=== PATIENT | female | born 1985 | race Caucasian/White ===

== ENCOUNTER 2018-01-24 18:54 | Emergency (ER) | END 2018-01-24 23:01 | disposition home or self-care (01) ==

== ENCOUNTER 2018-02-27 19:23 | Emergency (ER) | payer OTHER ==
[~2018-02-27] VITALS: Ht 157.5 cm; Wt 76.7 kg
[~2018-02-27 19:23] MED LIST: ACET500C5 PO; LABE300T2 PO; NITR-58 PO; VIC PO; ZOF8 PO
[2018-02-27 19:25] VITALS: Ht 157.5 cm; Wt 76.7 kg
[2018-02-27] MEDS ORDERED: ONDANSETRON (ODT) 4 MG TAB ODT STA (20:57)
[2018-02-27] MEDS ORDERED: ONDA4TAB14 PO (22:01)
[2018-02-27 22:09] VITALS: BP 159/105; PULSE 92; RESP 16
--- NOTE | 2018-02-27 23:26 | ERD ---
ER Documentation Chief Complaint Chief Complaint PREG 18 WKS WITH N/V X1WKS ; NO VAG BLEEDING [id number] HPI 32-year-old female presenting with vomiting. Patient had vomiting for 1 day. Patient denies any vaginal bleeding. She is 18 weeks with no complication. She is being seen by Dr. Mai. A0. Denies any pelvic cramping or pain. No vaginal bleeding. No fevers. Has not taken medications for symptoms. Medical history is hypertension. NKDA. Surgical history C- section cholecystectomy. Social history denies ROS All systems reviewed and are negative except as per history of present illness. Medications Home Meds Active Scripts Ondansetron (Ondansetron Odt) 4 Mg Tab.rapdis, 4 MG PO Q6H PRN for NAUSEA AND/OR VOMITING, #10 TAB Prov:INES DEL RIO PA-C 02/27/18 Labetalol Hcl* (Labetalol Hcl*) 300 Mg Tablet, 300 MG PO BID for 14 Days, #28 TAB Prov:FARZAD DUNBAR MD 01/24/18 Nitrofurantoin Monohyd Macrocr (Macrobid) 100 Mg Capsr, 100 MG PO BID, #10 CAP Prov:JANEY GOMEZ NP 03/18/15 Ondansetron Hcl* (Zofran* ODT) 8 mg -ODT Tab.disper, 8 MG PO Q6H PRN for NAUSEA AND OR VOMITING, #10 TAB Prov:JANEY GOMEZ NP 03/18/15 Acetaminophen* (Tylophen*) 500 Mg Capsule, 500 MG PO Q6H PRN for PAIN AND OR ELEVATED TEMP, #30 TAB Prov:JANEY GOMEZ NP 03/18/15 Reported Medications Acetaminophen/Hydrocodone (Vicodin) 1 Tab Tab, 1 TAB PO TID 03/24/11 Allergies Allergies: Coded Allergies: No Known Drug Allergy (Verified Allergy, Unknown, 02/27/18) PMhx/Soc History of Surgery: Yes () Anesthesia Reaction: No Hx Neurological Disorder: No Hx Respiratory Disorders: No Hx Cardiac Disorders: Yes (eclamspia during ) Hx Psychiatric Problems: No Hx Miscellaneous Medical Probl: No Hx Alcohol Use: No Hx Substance Use: No Hx Tobacco Use: No Smoking Status: Never smoker FmHx Family History: No diabetes, No coronary disease, No other Physical Exam Vitals Vital Signs Date Temp Pulse Resp B/P (MAP) Pulse Ox O2 O2 Flow FiO2 Time Delivery Rate 02/27/18 98.1 92 16 159/105 100 Room Air 22:09 (123) 02/27/18 98.1 105 19 164/97 97 19:25 (119) Physical Exam GENERAL: The patient is well-appearing, well-nourished, in no acute distress HEENT: Atraumatic. Conjunctivae are pink. Pupils equal, round, and reactive to light. There is no scleral icterus. Tympanic membranes clear bilaterally. Oropharynx clear. NECK: C-spine is soft and supple. There is no meningismus. There is no cervical lymphadenopathy. CHEST: Clear to auscultation bilaterally. There are no rales, wheezes or rhonchi. HEART: Regular rate and rhythm. No murmurs, clicks, rubs or gallops. No S3 or S4. ABDOMEN:Soft, nontender and nondistended. Good bowel sounds. No rebound or guarding. No gross peritonitis. No gross organomegaly or masses. No Nagy sign or McBurney point tenderness. Results 24 hrs Current Medications Medications Dose Sig/Peterson Start Time Status Last (Trade) Ordered Route PRN Stop Time Admin Dose Reason Admin Ondansetron 4 mg ONCE STAT 02/27/18 DC 02/27/18 HCl (Zofran ODT 20:57 02/27/18 21:06 Odt) 20:58 Procedures/MDM ER course: Zofran p.o. challenge given ED. Patient passed p.o. challenge. MDM: 32-year-old female presenting with vomiting. I have low suspicion for acute abdominal emergency or complications secondary to . Patient likely has viral gastroenteritis and is discharged with supportive medications. I did not feel that further blood work or imaging is indicated. Patient is discharged stricter precautions and told to follow-up with primary care within 1-2 days for close evaluation. Patient is told symptoms change or worsen to immediately return to the ER. All questions answered at discharge Departure Diagnosis: Primary Impression: Nausea and vomiting Condition: Stable Patient Instructions: Nausea and Vomiting-Adult Referrals: FARZAD BALLARD MD (PCP) Additional Instructions: FOLLOW UP WITH YOUR PRIMARY CARE PHYSICIAN TOMORROW.Return to this facility if you are not improving as expected. INES DEL RIO PA-C Feb 27, 2018 23:26
== END 2018-02-27 22:10 | disposition home or self-care (01) ==
LOC: FTE 19:23
DX: O21.9 Vomiting of pregnancy, unspecified (principal); Z3A.18 18 weeks gestation of pregnancy
CPT/HCPCS: Z7502; Z7610; 99283

== ENCOUNTER 2018-05-12 20:26 | Inpatient (IN) | payer OTHER ==
[~2018-05-12 20:26] MED LIST changes: +ONDA4TAB14 PO
[2018-05-12] MEDS ORDERED: AL HYDROX/MG HYDROX/SIMETH 30 ML CUP PO PRN (22:00)
[2018-05-12] MEDS ORDERED: ACETAMINOPHEN 325 MG TAB PO PRN (22:00)
[2018-05-12] MEDS ORDERED: GLUCOSE GEL 15 GRAM TUBE PO PRN ×2 (22:30)
[2018-05-12] MEDS ORDERED: DEXTROSE 50% 50 ML SYRINGE IV PRN ×2 (22:30)
[2018-05-12] MEDS ORDERED: GLUCAGON 1 MG INJ IM PRN (22:30)
[2018-05-12] MEDS ORDERED: GLUCOSE GEL 15 GRAM TUBE BUCCAL PRN (22:30)
[2018-05-12] MEDS: LABETALOL 200 MG TAB PO SCH (23:41)
[2018-05-12] MEDS: BETAMET NA PHOS/AC(6 MG/ML) 2 ML INJ SYG IM SCH (23:41)
--- NOTE | 2018-05-13 05:13 | TRIAGE ---
OB Triage Datetime Report Generated by CPN: 05/13/2018 05:13 Datetime: 05/13/2018 02:50 Stage of : Antepartum Datetime: 05/13/2018 02:32 Stage of : Antepartum Maternal Assessment Level of Consciousness: Fully Conscious Labor Evaluation Frequency: None Monitor Mode: External Resting Tone Corinne: Relaxed Heart Rate FHR Baseline Rate: 135 Monitor Mode: External US FHR Baseline Changes: No Baseline Change Variability: Moderate 6-25 bpm Accelerations: 15X15 Decelerations: None Pain Assessment Pain Scale: 0 Pain Presence: None/Denies Pain Type: N/A Pain Assessment Comments: Sleeping did not awaken when entering room. Datetime: 05/13/2018 02:03 Stage of : Antepartum Datetime: 05/13/2018 01:20 Stage of : Antepartum Maternal Assessment Level of Consciousness: Fully Conscious Headache: Denies Nausea/Vomiting: Denies RUQ Epigastric Pain: Denies Labor Evaluation Frequency: None Monitor Mode: External Resting Tone Corinne: Relaxed Heart Rate FHR Baseline Rate: 135 Monitor Mode: External US FHR Baseline Changes: No Baseline Change Variability: Moderate 6-25 bpm Accelerations: 15X15 Decelerations: None Pain Assessment Pain Scale: 0 Pain Presence: None/Denies Pain Type: N/A Datetime: 05/13/2018 00:21 Stage of : Antepartum Maternal Assessment Level of Consciousness: Fully Conscious Headache: Denies Nausea/Vomiting: Denies RUQ Epigastric Pain: Denies Labor Evaluation Frequency: None Monitor Mode: External Resting Tone Corinne: Relaxed Heart Rate FHR Baseline Rate: 135 Monitor Mode: External US FHR Baseline Changes: No Baseline Change Variability: Moderate 6-25 bpm Accelerations: 15X15 Decelerations: None Pain Assessment Pain Scale: 0 Pain Presence: None/Denies Pain Type: N/A Datetime: 05/12/2018 23:41 Stage of : Antepartum Datetime: 05/12/2018 23:40 Stage of : Antepartum Datetime: 05/12/2018 23:30 Stage of : OB Triage Maternal Assessment Level of Consciousness: Fully Conscious DTR's/Clonus: DTRs 2+; No Clonus Headache: Denies Breath Sounds, Left: Clear and Equal Breath Sounds, Right: Clear and Equal Nausea/Vomiting: Denies RUQ Epigastric Pain: Denies Temperature Route: Oral Labor Evaluation Frequency: None Monitor Mode: External Resting Tone Corinne: Relaxed Heart Rate FHR Baseline Rate: 135 Monitor Mode: External US FHR Baseline Changes: No Baseline Change Variability: Moderate 6-25 bpm Accelerations: 15X15 Decelerations: None Category: Category I Pain Assessment Pain Scale: 0 Pain Presence: None/Denies Pain Type: N/A Datetime: 05/12/2018 22:53 Assessment Type: Admission Assessment Datetime: 05/12/2018 22:49 Time of Arrival: 05/12/2018 20:12 EGA: 28.5 Arrived By: Ambulatory Arrived From: Home Chief Complaint: w/ hx c/s x 1 @30 wks for PIH sent from clinic w/ orders to evaluate for HBP Movement: Present Contractions: Denies/Absent Rupture of Membranes: Denies Vaginal Bleeding: None Vaginal Discharge: Denies Recent Sexual Intercouse: Denies Abdominal Trauma: Not Applicable Patient Complaints: None Additional Patient Complaints: Pt on labetolol 200mg BID A1DM Time Provider Notified: 05/12/2018 21:30 Provider Notified: Dr Santillan Initial Plan: EFM,PIH LABS, BPP Datetime: 05/12/2018 21:34 Vaginal Exam Membrane Status: Intact Datetime: 05/12/2018 21:30 Stage of : OB Triage Quality: Mild Pattern: Normal: <= 5 Contractions in 10 Minutes Resting Tone Corinne: Relaxed Datetime: 05/12/2018 20:47 Stage of : OB Triage Maternal Assessment Level of Consciousness: Fully Conscious DTR's/Clonus: DTRs 2+; No Clonus Headache: Denies Blurred Vision: No Respiratory Effort: Unlabored Nausea/Vomiting: Denies RUQ Epigastric Pain: Denies Facial Edema: None Monitor Mode: External Resting Tone Corinne: Relaxed Monitor Mode: External US Comments: FHT 135 Pain Assessment Pain Scale: 0 Pain Presence: None/Denies Pain Type: N/A
--- NOTE | 2018-05-13 05:27 | PREOPHP ---
DATE OF ADMISSION: 05/12/2018 HISTORY OF PRESENT ILLNESS: This is a 32-year-old lady, 2, para 1. Her EDC is 07/30/2018, a t 28 and 6/7 weeks , admitted to Labor and Delivery area for observation. The patient is kno wn to have chronic hypertension and she is on labetalol 200 mg b.i.d. given by the perinatologist at [facility]. When she was in the clinic, on 05/12/2018, her blood pressure was 160/105 and repeat at 170/110, so she was admitted for observation. PAST PERSONAL HISTORY: No history of TB or asthma. ALLERGIES: NO ALLERGIES. MEDICATIONS: The patient is on labetalol 200 mg b.i.d. She has gestational diabetes. She is having care in my [facility] office. SOCIAL HISTORY: The patient does not smoke. She does not drink. She takes her iron and vitamins an d labetalol. She has menarche at the age of 14, every 28 days interval, 3 to 4 days duration, and mo derate in amount. FAMILY HISTORY: Mother has diabetes and hypertension, and sister has heart disease. PAST SURGICAL HISTORY: She had gallbladder surgery. She is 2, para 1. Her first delivery w as in 2009, delivered at 31 weeks by and a twin . She was delivered at 31 weeks f or preeclampsia. REVIEW OF SYSTEMS: CARDIOVASCULAR: No chest pains. RESPIRATORY: No cough. GASTROINTESTINAL: No diarrhea, no vomiting. GENITOURINARY: No dysuria. PHYSICAL EXAMINATION: GENERAL: Reveals a conscious, coherent lady and in no acute distress. VITAL SIGNS: Her blood pressure on admission one was 165/90, but after it was repeated, it was 133/8 8; pulse rate 80 per minute, respirations 16 per minute. BREASTS, HEART AND LUNGS: Within normal limits. ABDOMEN: Soft. Fundic height 29 cm. heart tones 140 per minute. PELVIC: On admission, revealed the cervix to be closed. EXTREMITIES: No calf tenderness. Deep tendon reflexes are normal. ADMITTING DIAGNOSIS: At 28 and 6/7 weeks intrauterine with chronic hypertension and gestat ional diabetes, diet controlled. The patient was planned to be observed in the hospital to have preg victor hugo-induced hypertension workup and increase her labetalol to 200 three times a day. The plans wer e explained to the patient and she understood everything totally. The risks, benefits, and alternati ves were discussed with her as well. Dictated By: SCOTTY GUO/CHELA Conf#: [id number] DID#: [id number]
[2018-05-13] MEDS: METOCLOPRAMIDE 10 MG TAB PO SCH ×5 (06:00→18:11)
[2018-05-13] MEDS: ACCU-CHEK XX SCH ×4 (08:00→18:09)
[2018-05-13] MEDS: FERROUS SULFATE (EC) 325 MG TAB PO SCH (08:53)
[2018-05-13] MEDS: PRENATAL VITAMIN PO SCH (08:54)
[2018-05-13] MEDS: LABETALOL 200 MG TAB PO SCH ×2 (08:54→16:57)
[2018-05-13] MEDS: INSULIN ASPART [NOVOLOG] 3 ML PEN SC SCH (18:09)
[2018-05-13] MEDS ORDERED: ACCU-CHEK XX SCH (19:35)
[2018-05-13] MEDS: BETAMET NA PHOS/AC(6 MG/ML) 2 ML INJ SYG IM SCH (23:41)
[2018-05-14] MEDS: LABETALOL 200 MG TAB PO SCH ×3 (01:00→12:33)
--- NOTE | 2018-05-14 06:28 | CONS ---
DATE OF ADMISSION: 05/12/2018 DATE OF CONSULTATION: 05/13/2018 TYPE OF CONSULTATION: Perinatology consult. HISTORY OF PRESENT ILLNESS: The patient is a 32-year-old G2, P1 at less than 30 weeks who w as admitted from the office with elevated blood pressure. Her blood pressures initially a few of the m were severe. However, after dose was increased, her blood pressures currently are in the moderate ranges. She has no headache, chest pain, shortness of breath. PAST MEDICAL HISTORY: Significant for chronic hypertension diagnosed prior to , she was on some type of medication which she does not remember. During the she has been on labetalol 200 mg twice a day until now. OBSTETRIC HISTORY: Significant for history of preeclampsia, but she states that hypertension resolve d after until chronic hypertension developed. She delivered the first baby at 30 weeks. Blood pressure is currently 142/81. Physical examination deferred. heart tones reassuring. N o contractions. LABORATORY VALUES: AST, ALT, creatinine and platelets are normal. A 24-hour urine for protein is pe nding. IMPRESSION: Intrauterine at currently less than 30 weeks gestation, admitted secondary to elevated blood pressures; few severe blood pressures at admission, blood pressure medication dose was increased to labetalol 200 mg 3 times a day. Her blood pressure is currently in normal to moderate range, receiving betamethasone and 24-hour urine protein will be up this evening. She has a history of chronic hypertension. RECOMMENDATIONS: Continue currently with the current management of care. We can consider discharge after the betamethasone is done if her blood pressures remain in the modera te range. heart tones reassuring and there are no symptoms, meaning GI, neurologic or respirat ory symptoms of preeclampsia. Upon discharge, she needs to be seen at perinatology for a BPP once a week until 32 weeks which she w ill have the twice weekly testing, once a week laboratory results and the more frequent at her primary clinic. She was extremely cautioned about bed rest at home and preeclampsia precautions were advised, as she has had this preeclampsia before with the last she delivered at 30 weeks and she is approac sara 30 weeks. For her gestational diabetes I put her on sliding scale as she is receiving betamethasone. If she is discharged, obviously betamethasone should be discharged until we see her hopefully next week. Dictated By: GEORGE DUEÑAS/NTS Conf#: [id number] DID#: [id number] CC: SCOTTY GUTIERREZ MD;*[facility]*
[2018-05-14] MEDS: INSULIN ASPART [NOVOLOG] 3 ML PEN SC SCH (08:44)
[2018-05-14] MEDS: PRENATAL VITAMIN PO SCH (09:22)
[2018-05-14] MEDS: FERROUS SULFATE (EC) 325 MG TAB PO SCH (09:22)
[2018-05-14] MEDS: METOCLOPRAMIDE 10 MG TAB PO SCH (14:01)
[2018-05-14] MEDS ORDERED: LABE200T7 PO (16:13)
--- NOTE | 2018-05-16 04:23 | PN ---
DATE: 05/13/2018 SUBJECTIVE: The patient feels good. No complaints, no headache, no abdominal pain. No blurring of vision. OBJECTIVE: VITAL SIGNS: She is afebrile, blood pressure is under control. ABDOMEN: Soft, no tenderness noted. heart tones normal. EXTREMITIES: No calf tenderness. ASSESSMENT: A 29 weeks intrauterine with -induced hypertension. PLAN: Continue with labetalol p.o. 3 times a day and to give the second dose of betamethasone today. Plan to go tomorrow per Dr. Skinner. Dictated By: SCOTTY GUO/NTS Conf#: [id number] DID#: [id number]
--- NOTE | 2018-05-16 04:30 | PN ---
DATE: 05/14/2018 SUBJECTIVE: The patient feels good. No headache, no blurring of vision. OBJECTIVE: VITAL SIGNS: She is afebrile, blood pressure under control less than 140/90. ABDOMEN: Soft. heart tones normal. No tenderness noted. No vaginal bleeding. EXTREMITIES: No calf tenderness. Deep tendon reflexes normal. PLAN: Home today. Continue with labetalol 200 mg p.o. 3 times a day. Received 2 doses of betametha sone. Patient counseled. She was instructed to return to clinic in 1 week. Dictated By: SCOTTY GUO/NTS Conf#: [id number] DID#: [id number]
--- NOTE | 2018-05-20 20:57 | DS ---
DATE OF ADMISSION: 05/12/2018 DATE OF DISCHARGE: 05/14/2018 This is a 32-year-old lady 2, para 1, EDC 07/30/2018 at 28 and 6/7 weeks , admitted f or observation for her chronic hypertension. She had care in my [place] office and the [facility] care was complicated by hypertension. She has been followed by the perinatologist at [facility]. PAST PERSONAL HISTORY: No history of diabetes, TB, asthma. ALLERGIES: NONE. HISTORY OF PRESENT ILLNESS: See dictated history and physical. PHYSICAL EXAMINATION: See dictated history and physical. ADMITTING DIAGNOSIS: A 28 and 6/7 weeks intrauterine with chronic hypertension, gestationa l diabetes, diet controlled. HOSPITAL COURSE: Dr. Skinner wanted the patient to be observed in the hospital and to increase her lab etalol to 200 three times a day. She was observed for 2 days and the blood pressure was under contro l less than 140/90. She did not have any complaint. No epigastric pain. No blurring of vision. Jose gustafson was discharged home on the second day of observation on 05/14/2018 on general diet and activity was restricted. She was counseled. She was instructed. She was told to continue labetalol 200 mg 3 ti mes a day. FINAL DIAGNOSES: A 29 and 1/7 weeks intrauterine with chronic hypertension, gestational di abetes mellitus diet-controlled. Dictated By: SCOTTY GUO/NTS Conf#: [id number] DID#: [id number]
== END 2018-05-14 16:30 | disposition home or self-care (01) | DRG 833 ==
LOC: OBT 20:26 → L-D 20:27 → OBT 21:40 → L-D 22:28 → PP1 05-14 06:57
PROVIDERS: ADMIT Obstetrics & Gynecology; ATTEND Obstetrics & Gynecology
DX: O10.013 Pre-existing essential hypertension complicating pregnancy, third trimester (principal); Z3A.28 28 weeks gestation of pregnancy; O24.410 Gestational diabetes mellitus in pregnancy, diet controlled
CPT/HCPCS: 76815; 76818; 80053; 81001; 82575; 82962; 84156; 84560; 85025; 85384; 85610; 85730; 86592; 86850; 86900; 86901; 87086; G0463; J0702; J1815

== ENCOUNTER 2018-06-24 11:43 | Inpatient (IN) | payer OTHER ==
[~2018-06-24] VITALS: Ht 154.9 cm; Wt 83.0 kg
[~2018-06-24 11:43] MED LIST changes: +LABE200T7 PO; -LABE300T2 PO; -NITR-58 PO; -VIC PO
[2018-07-05 17:07] VITALS: Ht 154.9 cm; Wt 83.0 kg
[2018-07-05 17:08] VITALS: BP 156/87
[2018-07-05] MEDS ORDERED: PREN1TAB71 PO (17:11)
[2018-07-05] MEDS ORDERED: FERR134T PO (17:11)
[2018-07-05] MEDS ORDERED: CALC600T5 PO (17:13)
[2018-07-05] MEDS: LACTATED RINGER'S 1,000 ML IV SCH (18:48)
[2018-07-05] MEDS ORDERED: hydrALAzine 20 MG INJ IV ONE (19:00)
[2018-07-05] MEDS: ACETAMINOPHEN 500 MG TAB PO PRN ×2 (19:41→23:57)
[2018-07-05] MEDS: LABETALOL 200 MG TAB PO SCH (21:21)
[2018-07-05] MEDS: ACCU-CHEK XX SCH (21:50)
[2018-07-06] VITALS (10 sets, daily range): BP systolic 117–151; BP diastolic 64–89; PULSE 78–104; RESP 18–20
[2018-07-06] MEDS: LACTATED RINGER'S 1,000 ML IV SCH (02:13)
[2018-07-06] MEDS ORDERED: hydrALAzine 20 MG INJ ONE (07:06)
[2018-07-06] MEDS ORDERED: hydrALAzine 20 MG INJ IV ONE (07:30)
[2018-07-06] MEDS ORDERED: LABETALOL HCL 20MG INJ IV ONE (07:30)
--- NOTE | 2018-07-06 07:36 | PREAC ---
Date/Time of Note Date/Time of Note DATE: 07/06/18 TIME: 07:34 Anesthesia Eval and Record Evaluation Time Pre-Procedure Interview DATE: 07/06/18 TIME: 07:34 Age 32 Sex female NPO: 8 hrs Preoperative diagnosis PREVIOUS C SECTION, CHRONIC HTN Planned procedure REPEAT C SECTION Past Medical History Past Medical History: Includes : : (2), Para: (1), Gestational age: (36 1/7 WEEKS) Surgery & Anesthesia Issues No known issue Meds Anticoagulation: No Beta Elise within 24 hr: No Reason Beta Elise not given: Pt. not on B-Elise Reported Medications Calcium Carbonate (CALCIUM) 600 Mg Tablet, 600 MG PO, TAB 07/05/18 Ferrous Sulfate (Iron) 134 Mg Tablet, 134 MG PO, TAB 07/05/18 Vit No.130/Iron/FA ( Tablet) 1 Each Tablet, 1 EACH PO 07/05/18 Labetalol Hcl (Normodyne) 200 Mg Tablet, 200 MG PO BID, TAB 05/14/18 Discontinued Scripts Ondansetron (Ondansetron Odt) 4 Mg Tab.rapdis, 4 MG PO Q6H PRN for NAUSEA AND/OR VOMITING, #10 TAB Prov:INES DEL RIO PA-C 02/27/18 Ondansetron Hcl* (Zofran* ODT) 8 mg -ODT Tab.disper, 8 MG PO Q6H PRN for NAUSEA AND OR VOMITING, #10 TAB Prov:JANEY GOMEZ NP 03/18/15 Acetaminophen* (Tylophen*) 500 Mg Capsule, 500 MG PO Q6H PRN for PAIN AND OR ELEVATED TEMP, #30 TAB Prov:JANEY GOMEZ NP 03/18/15 Current Medications Diagnostic Test (Pha) (Accu-Chek) 1 ea FBSPP XX ; Start 07/05/18 at 19:35 Labetalol HCl (Normodyne) 200 mg TID PO Last administered on 07/05/18at 21:21; Admin Dose 200 MG; Start 07/05/18 at 21:00 Acetaminophen (Tylenol Tab) 1,000 mg Q6H PRN PO MILD PAIN(1-3)OR ELEVATED TEMP Last administered on 07/05/18at 23:57; Admin Dose 1,000 MG; Start 07/05/18 at 18:00 Lactated Ringer's 1,000 ml @ 125 mls/hr Q8H IV Last administered on 07/06/18at 02:13; Admin Dose 125 MLS/HR; Start 07/05/18 at 19:00 Meds reviewed: Yes Allergies Coded Allergies: No Known Allergy (Unverified , 07/05/18) Allergies Reviewed: Yes Labs/Studies Labs Reviewed: Reviewed by anesthesiologist Result Diagram: 07/05/18 1732 07/05/18 1732 Laboratory Tests 07/05/18 17:32 test: N/A Pre-procedure Exam Last vitals Vital Signs Date Temp Pulse Resp B/P (MAP) Pulse Ox O2 O2 Flow FiO2 Time Delivery Rate 07/06/18 98.0 00:45 07/05/18 156/87 Room Air 17:08 (110) Airway: Adequate mouth opening, Adequate thyromental dist Mallampati: Mallampati II Teeth: Normal Lung: Normal Heart: Normal ASA Physical Status ASA physical status: 3 Emergency: None Planned Anesthetic Neuraxial: Spinal Planned Pain Management Parenteral pain med Pre-operative Attestations Prior to commencing anesthesia and surgery, the patient was re-evaluated, there was verification of: *The patient's identity *The results of appropriate recent lab work and preoperative vital signs *The above evaluation not changing prior to induction *Anesthetic plan, risk benefits, alternative and complications discussed with patient/family; questions answered; patient/family understands, accepts and wishes to proceed. Claudy Wallace M.D. July 06, 2018 07:36
[2018-07-06] MEDS ORDERED: ONDANSETRON 4 MG INJ IV STA (07:40)
[2018-07-06] MEDS ORDERED: CARBOPROST 250 MCG INJ IM PRN ×2 (08:00→11:30)
[2018-07-06] MEDS ORDERED: CEFAZOLIN 2 GM/50 ML (PMX) 50 ML IVPB SCH (08:00)
[2018-07-06] MEDS ORDERED: MISOPROSTOL 200 MCG TAB PR PRN ×2 (08:00→11:30)
[2018-07-06] MEDS ORDERED: CITRIC ACID/NA CITRATE 30 ML CUP PO ONE (08:00)
[2018-07-06] MEDS ORDERED: OXYTOCIN 30 UNITS/LR 500 ML IV PRN ×2 (08:00→11:30)
[2018-07-06] MEDS: LABETALOL 200 MG TAB PO SCH ×3 (09:00→21:00)
--- NOTE | 2018-07-06 09:18 | PREOPHP ---
DATE OF ADMISSION: 07/05/2018 HISTORY OF PRESENT ILLNESS: This is a 32-year-old lady, 2, para 1. Her EDC is a July 30 9 that makes her 36 and 3/7 weeks . On admission, admitted to labor and delivery area for ob servation. She has chronic hypertension and she is on labetalol 200 mg 3 times a day and the patient came from Dr. Skinner's office and was sent to labor and delivery for extended observation as her bloo d pressure was elevated at Dr. Skinner's office in spite of her labetalol 3 times a day. PAST PERSONAL HISTORY: No history of TB, asthma. ALLERGIES: NO ALLERGIES. SOCIAL HISTORY: The patient does not smoke. She does not drink. MEDICATIONS: She takes iron, vitamins and her labetalol. OBSTETRICAL HISTORY: She is 2, para 1. Her first delivery was in 2009 by for pree clampsia. GYNECOLOGIC HISTORY: She had menarche at the age of 14, every 28 days interval, 3 to 4 days duration , and moderate in amount. FAMILY HISTORY: Mother has diabetes and hypertension. Her sister has heart disease. REVIEW OF SYSTEMS: CARDIOVASCULAR: No chest pains. RESPIRATORY: No cough. GASTROINTESTINAL: No diarrhea, no vomiting. GENITOURINARY: No dysuria. PHYSICAL EXAMINATION: GENERAL: Reveals a conscious, coherent lady and in no acute distress. VITAL SIGNS: Blood pressure on admission was 148/90, pulse rate 80 per minute, respirations 16 per m inute. BREASTS, HEART AND LUNGS: Within normal limits. ABDOMEN: Soft, fundic height 36 cm. heart tones 140 per minute. PELVIC: Revealed the cervix to be closed. EXTREMITIES: No pedal edema. ADMITTING DIAGNOSIS: 36 and 3/7 weeks intrauterine with chronic hypertension, rule out pre gnancy induced hypertension. The patient was worked up for induced hypertension and was co ntinued on labetalol. During the evening her blood pressure ramesh up to 180/110 and she was given Apr esoline and the blood pressure was closed to 140/90. In the morning around 7, I was called by the coco rse that her blood pressure was 190/110 again, so she was given another dose of Apresoline and the pa tient was put n.p.o. and she was scheduled to have repeat for chronic hypertension and poss ible severe preeclampsia. Dr. Skinner was consulted and she advised the patient to be delivered as vikram n as possible. The plans were explained to the patient and she understood everything totally. The r isks, benefits, and alternatives were discussed with them as well. So the indication is 36 and 4/7 w eeks intrauterine with severe chronic hypertension and possible severe induced hy pertension and one previous section. Dictated By: SCOTTY GUTIERREZ MD NS/NTS Conf#: [id number] DID#: [id number] CC: SCOTTY GUTIERREZ MD;*EndCC*
[2018-07-06] MEDS ORDERED: morphine SULFATE/PF (10 MG/10 ML) INJ ONE (09:35)
[2018-07-06] MEDS ORDERED: OXYTOCIN 10 UNIT INJ ONE (09:35)
[2018-07-06] MEDS ORDERED: METOCLOPRAMIDE 10 MG INJ ONE (09:35)
[2018-07-06] MEDS ORDERED: LABETALOL HCL 20MG INJ IV PRN (10:00)
[2018-07-06] MEDS ORDERED: NALBUPHINE HCL (10 MG/1 ML) INJ IV PRN (10:00)
[2018-07-06] MEDS ORDERED: HYDROmorphONE 1 MG/5 ML IV SYRINGE IV PRN ×3 (10:00)
[2018-07-06] MEDS ORDERED: ONDANSETRON 4 MG INJ IV PRN ×2 (10:00)
[2018-07-06] MEDS ORDERED: morphine 2 MG INJ IV PRN (10:00)
[2018-07-06] MEDS ORDERED: hydrALAzine 20 MG INJ IV PRN (10:00)
[2018-07-06] MEDS ORDERED: ZOLPIDEM 5 MG TAB PO PRN (10:00)
[2018-07-06] MEDS ORDERED: TRIMETHOBENZAMIDE 100 MG/ML VIAL IM PRN ×2 (10:00)
[2018-07-06] MEDS ORDERED: MEPERIDINE 25 MG INJ IV PRN (10:00)
[2018-07-06] MEDS ORDERED: DIPHENHYDRAMINE 50 MG INJ IV PRN ×2 (10:00)
[2018-07-06] MEDS ORDERED: IPRATROPIUM (NEB) 0.5 MG/2.5 ML AMP HHN PRN (10:00)
[2018-07-06] MEDS ORDERED: OXYCODONE/ACETAMINOPHEN (5/325) TAB PO PRN ×2 (10:00)
[2018-07-06] MEDS ORDERED: ALBUTEROL 0.083% (NEB) 2.5 MG/3 ML AMP HHN PRN (10:00)
[2018-07-06] MEDS ORDERED: EPHEDrine 25 MG/5 ML SYG IV PRN (10:00)
[2018-07-06] MEDS ORDERED: NALOXONE (0.4 MG/ML) INJ IV PRN (10:00)
[2018-07-06] MEDS ORDERED: FENTAnyl 50 MCG/ML VIAL IV PRN ×3 (10:00)
[2018-07-06] MEDS ORDERED: MIDAZOLAM 1 MG/ML 2 ML INJ IV PRN (10:00)
[2018-07-06] MEDS ORDERED: LABETALOL HCL 20MG INJ ONE (10:11)
[2018-07-06] MEDS ORDERED: DEXAMETHASONE 4 MG/ML 1 ML INJ ONE (10:16)
[2018-07-06] MEDS ORDERED: MIDAZOLAM 1 MG/ML 2 ML INJ ONE (10:17)
[2018-07-06] MEDS: OXYTOCIN 30 UNITS/LR 500 ML IV SCH (10:55)
[2018-07-06] MEDS ORDERED: LACTATED RINGER'S 1,000 ML IV SCH (11:06)
[2018-07-06] MEDS ORDERED: OXYTOCIN 30 UNITS/LR 500 ML IV SCH (11:06)
--- NOTE | 2018-07-06 11:20 | PAC ---
Date/Time of Note Date/Time of Note DATE: 07/06/18 TIME: 11:19 Post-Anesthesia Notes Post-Anesthesia Note Last documented vital signs Vital Signs Date Temp Pulse Resp B/P (MAP) Pulse Ox O2 O2 Flow FiO2 Time Delivery Rate 07/06/18 98.0 00:45 07/05/18 156/87 Room Air 17:08 (110) Activity: WNL Respiratory function: WNL Cardiovascular function: WNL Mental status: Baseline Pain reasonably controlled: Yes Hydration appropriate: Yes Nausea/Vomiting absent: Yes Claudy Wallace M.D. July 06, 2018 11:20
[2018-07-06] MEDS ORDERED: LANOLIN HPA 1 PKT TOP PRN (11:30)
[2018-07-06] MEDS ORDERED: MAGNESIUM SULFATE 4 GM/100 ML 100 ML IV SCH (11:30)
[2018-07-06] MEDS ORDERED: HYDROCODONE/APAP (5/325) TAB PO PRN (11:30)
[2018-07-06] MEDS ORDERED: METHYLERGONOVINE 0.2 MG TAB PO PRN (11:30)
[2018-07-06] MEDS ORDERED: METHYLERGONOVINE 0.2 MG INJ IM PRN (11:30)
[2018-07-06] MEDS ORDERED: NACL 0.9% 3 ML SYG IV SCH (11:30)
[2018-07-06] MEDS ORDERED: CA GLUCONATE (GM) 10% 10ML INJ IV PRN (11:30)
[2018-07-06] MEDS: MAGNESIUM SULFATE 20 GM/500 ML 500 ML IV SCH ×2 (11:41→22:16)
[2018-07-06] MEDS: KETOROLAC 30 MG INJ IV PRN ×2 (12:17→19:51)
[2018-07-06] MEDS: ACCU-CHEK XX SCH ×4 (13:30→20:05)
--- NOTE | 2018-07-06 14:09 | OPR ---
DATE OF OPERATION: 07/06/2018 PREOPERATIVE DIAGNOSES: 1. A 36 and 4/7 weeks' intrauterine . 2. One previous section. 3. Severe chronic hypertension. 4. Preeclampsia. POSTOPERATIVE DIAGNOSES: 1. A 36 and 4/7 weeks' intrauterine . 2. One previous section. 3. Severe chronic hypertension. 4. Preeclampsia. 5. Severe pelvic and abdominal adhesions. OPERATION PERFORMED: Repeat low transverse section plus lysis of severe pelvic and abdomina l adhesions. SURGEON: Scotty Santillan MD CELLAR SUPERVISOR: Kath Grimes MD ANESTHESIA: Spinal. ANESTHESIOLOGIST: Claudy Wallace MD OPERATIVE TECHNIQUE: Under spinal anesthesia, the patient was prepped and draped in the usual fashio n for abdominal surgery. After checking for the effect of the anesthesia, the previous Pfannenstiel scar was excised. Then a 12 cm skin incision was performed. The incision was carried from the skin up to the fascia. Upon opening the skin up to the fascia, small blood vessels were noted to be oozin g and these were all cauterized. Fascia was opened transversely followed by splitting the muscles ve rtically and the peritoneum vertically. Upon opening the abdominal cavity, the omentum was noted to be attached all over the anterior parietal peritoneum. All these adhesions were lysed by sharp and b loc dissection. Then, the bladder blade was put in place. A small van was performed from the sero sa up to the endometrium on the lower uterine segment and the van was carried sideways with the aid of my 2 fingers. My left hand was inserted in the lower segment of the uterus and the bag of water w as ruptured. Clear fluid was noted. Baby's head was delivered with good fundal pressure. The baby' s airways were quickly suctioned with amniotic fluid. The anterior shoulder, posterior shoulder and rest of the body of the baby were delivered. Baby was handed to the NICU team after 30 seconds. Cor d blood was obtained. The placenta was delivered manually and complete. The uterus was exteriorized . The uterus was cleansed with wet lap sponge to make sure that no membranes were left behind. After correct sponge count, the uterus was closed in the usual fashion using #1 chromic for the fir st layer, continuous locking suture was used followed by #1 chromic for the second layer, imbricating sutures were used. Bleeders were checked and there was no bleeding noted. After checking for any b leeders in which there were none, both tubes and ovaries were inspected. They were healthy looking. The broad ligament were checked for any hematoma and there was none noted. Then the uterus was put back to the pelvic cavity. Once again, uterine incision was checked for any bleeders and there was n o bleeding noted. After correct sponge count, needle count and instrument count as confirmed by the pattern technician and pre billing specialist, the abdomen was closed in the usual fashion using 0 Vicryl for the periton eum, 0 Vicryl for the muscles. For the fascia, 0 Vicryl continuous stitch was used followed by few f [id number] suture. For the subcutaneous tissue, it was closed with 3-0 Vicryl and the skin was c losed with 3-0 Vicryl, subcuticular suture was used. The patient tolerated the procedure well. Ngoc mated blood loss was about 600 mL. Vital signs were stable during and after the procedure. She deli nazia a healthy baby girl, 8 and 9, 3265 grams, 7 pounds and 3 ounces at 10:00 a.m., 19 inches long. Dictated By: SCOTTY GUO/CHELA Conf#: [id number] DID#: [id number]
--- NOTE | 2018-07-06 18:23 | OPPN ---
Date/Time of Note Date/Time of Note DATE: 07/06/18 TIME: 18:20 Operative Report Planned Procedure Procedure date July 06, 2018 Procedure(s) REPEAT CSECTION LYSIS OF ADHESION Performed by see signature line Final Inspector: ISAUT MCFARLAND MD 2nd Final Inspector none Pre-procedure diagnosis 36 4/7 PREVIOUS CSECTION SEVERE CHRONIC HTN [id number] Anesthesia Type: [id number] spinal Post-Procedure Post-procedure diagnosis 36 4/7 PREVIOUS CSECTION SEVERE CHRONIC HTN Findings Live Baby , [id number], [id number] 3 OZ 3265 GRAMS Estimated Blood Loss: 500 - 600 mls Specimen(s) none Grafts/Implant(s) PLACENTA Complication(s) none SCOTTY GUTIERREZ MD July 06, 2018 18:22
[2018-07-06] MEDS: SENNA/DOCUSATE NA (8.6MG/50MG) TAB PO SCH (21:00)
[2018-07-07] VITALS (11 sets, daily range): BP systolic 120–170; BP diastolic 56–82; PULSE 68–104; RESP 0–20
[2018-07-07] MEDS: morphine 2 MG INJ IV PRN ×2 (00:54→09:33)
[2018-07-07] MEDS ORDERED: MAGNESIUM SULFATE 20 GM/500 ML 500 ML IV SCH (01:00)
[2018-07-07] MEDS: OXYTOCIN 30 UNITS/LR 500 ML IV SCH (03:50)
[2018-07-07] MEDS: KETOROLAC 30 MG INJ IV PRN (07:02)
[2018-07-07] MEDS: ACCU-CHEK XX SCH ×4 (07:30→21:02)
[2018-07-07] MEDS: SENNA/DOCUSATE NA (8.6MG/50MG) TAB PO SCH ×2 (13:53→20:44)
[2018-07-07] MEDS: HYDROCODONE/APAP (5/325) TAB PO PRN ×2 (13:53→20:44)
[2018-07-07] MEDS: IBUPROFEN 800 MG TAB PO PRN (15:59)
--- NOTE | 2018-07-07 16:36 | PN ---
Date/Time of Note Date/Time of Note DATE: 07/07/18 TIME: 16:33 Assessment/Plan VTE Prophylaxis Risk score (from Ns)>0 risk: 4 SCD applied [place] [facility] [place] No SCD contraindicated: low risk/ambulating Pharmacological prophylaxis: NA/contraindicated Pharm contraindication: low risk/ambulating Lines/Catheters IV C[facility]ter Type (from [facility]): Peripheral IV Assessment/Plan Assessment/Plan POSTCSECTION DAY 1 CHRONIC IRON DEFICIENCY ANEMIA TRANSFUSE 3 UNITS OF PACK CELL ORDERED ADVANCE DIET TOLERATED CBC ON 3RD POSTOP DAY Result Diagram: 07/07/18 0712 07/07/18 0712 Results 24hrs Laboratory Tests Test 07/06/18 18:36 07/06/18 21:01 07/07/18 00:30 07/07/18 07:12 Magnesium Level 5.9 *H 7.2 *H 5.7 *H Bedside Glucose 151 White Blood Count 17.7 #H Red Blood Count 2.17 #L Hemoglobin 5.6 #*L Hematocrit 17.5 #L Mean Corpuscular 80.6 L Volume Mean Corpuscular 25.8 L Hemoglobin Mean Corpuscular 32.0 Hemoglobin Concent Red Cell 14.6 H Distribution Width Platelet Count 349 Mean Platelet Volume 10.0 Immature 0.500 H Granulocytes % Neutrophils % Segmented 65 Neutrophils % (Manual) Band Neutrophils % 8 H (Manual) Lymphocytes % Lymphocytes % 21 (Manual) Monocytes % Monocytes % (Manual) 6 Eosinophils % Basophils % Nucleated Red Blood 0.0 Cells % Immature 0.090 H Granulocytes # Neutrophils # Neutrophils # 11.8 H (Manual) Band Neutrophils # 1.4 H Lymphocytes (Manual) 3.7 H Lymphocytes # Monocytes # Monocytes # (Manual) 1.0 H Eosinophils # Basophils # Nucleated Red Blood Cells # Pathologist YES Review (Hematology) Platelet Estimate NORMAL Polychromasia 3+ Anisocytosis 3+ Microcytosis 3+ Ovalocytes 1+ Sodium Level 135 Potassium Level 4.0 Chloride Level 107 Carbon Dioxide Level 22 Anion Gap 6 Blood Urea Nitrogen 10 Creatinine 0.62 Est Glomerular > 60 Filtrat Rate mL/min Glucose Level 94 Calcium Level 6.1 L Test 07/07/18 08:35 07/07/18 15:43 Bedside Glucose 111 116 Subjective 24 Hr Interval Summary Free Text/Dictation POST CSECTION DAY 1 COMPLAIN OF INCISIONAL PAINS GOOD URINE OUTPUT PASSING GAS PER RECTUM NO BOWEL MOVEMENT YET Exam/Review of Systems Exam Vitals Vital Signs Date Temp Pulse Resp B/P (MAP) Pulse Ox O2 O2 Flow FiO2 Time Delivery Rate 07/07/18 99.2 95 20 146/82 Room Air 12:00 (103) 07/07/18 97 06:47 Intake and Output 07/06/18 07/06/18 07/07/18 1515:00 23:00 07:00 IntakeIntake Total 1075 ml 825 ml 725 ml OutputOutput Total 2200 ml 900 ml 300 ml BalanceBalance -1125 ml -75 ml 425 ml Exam VITAL SIGNS STABLE: YES AFEBRILE: YES BREAST NOT ENGORGED, NON-TENDER, NO APPRECIABLE MASS: YES LUNGS CLEAR, NO RALES, WHEEZES, RHONCHI: YES SINUS RHYTHM WITHOUT MURMUR: YES ABDOMEN: NON-TENDER FUNDUS: BELOW UMBILICUS BOWEL SOUNDS: PRESENT UTERUS: FIRM INCISION (CLEAN, DRY, AND INTACT): YES LOCHIA: LIGHT DEEP TENDON REFLEXES: 0 EXTREMITIES: NO CALF TENDERNESS EDEMA SCALE: NONE Results Results 24hrs Laboratory Tests Test 07/06/18 18:36 07/06/18 21:01 07/07/18 00:30 07/07/18 07:12 Magnesium Level 5.9 *H 7.2 *H 5.7 *H Bedside Glucose 151 White Blood Count 17.7 #H Red Blood Count 2.17 #L Hemoglobin 5.6 #*L Hematocrit 17.5 #L Mean Corpuscular 80.6 L Volume Mean Corpuscular 25.8 L Hemoglobin Mean Corpuscular 32.0 Hemoglobin Concent Red Cell 14.6 H Distribution Width Platelet Count 349 Mean Platelet Volume 10.0 Immature 0.500 H Granulocytes % Neutrophils % Segmented 65 Neutrophils % (Manual) Band Neutrophils % 8 H (Manual) Lymphocytes % Lymphocytes % 21 (Manual) Monocytes % Monocytes % (Manual) 6 Eosinophils % Basophils % Nucleated Red Blood 0.0 Cells % Immature 0.090 H Granulocytes # Neutrophils # Neutrophils # 11.8 H (Manual) Band Neutrophils # 1.4 H Lymphocytes (Manual) 3.7 H Lymphocytes # Monocytes # Monocytes # (Manual) 1.0 H Eosinophils # Basophils # Nucleated Red Blood Cells # Pathologist YES Review (Hematology) Platelet Estimate NORMAL Polychromasia 3+ Anisocytosis 3+ Microcytosis 3+ Ovalocytes 1+ Sodium Level 135 Potassium Level 4.0 Chloride Level 107 Carbon Dioxide Level 22 Anion Gap 6 Blood Urea Nitrogen 10 Creatinine 0.62 Est Glomerular > 60 Filtrat Rate mL/min Glucose Level 94 Calcium Level 6.1 L Test 07/07/18 08:35 07/07/18 15:43 Bedside Glucose 111 116 Medications Medication Current Medications Diagnostic Test (Pha) (Accu-Chek) 1 ea FBSPP XX Last administered on 07/07/18at 07:30; Admin Dose 1 EA; Start 07/05/18 at 19:35 Acetaminophen (Tylenol Tab) 1,000 mg Q6H PRN PO MILD PAIN(1-3)OR ELEVATED TEMP Last administered on 07/05/18at 23:57; Admin Dose 1,000 MG; Start 07/05/18 at 18:00 Cefazolin Sodium/ Dextrose 50 ml @ 100 mls/hr ONCE IVPB ; Start 07/06/18 at 08:00 Oxytocin/Lactated Ringer's 500 ml @ 125 mls/hr POST IV Last administered on 07/07/18at 03:50; Admin Dose 125 MLS/HR; Start 07/06/18 at 08:00 Oxytocin/Lactated Ringer's 500 ml @ 0 mls/hr ONCE PRN IV .VAGINAL BLEEDING; Start 07/06/18 at 08:00 Miscellaneous Information (* Miscellaneous Pharmacy Order) DURAMORPH: 0.2 MG SPI... GIVEN NEURAXIAL XX ; Start 07/06/18 at 10:00 Methylergonovine Maleate (Methergine) 0.2 mg Q6H PRN PO .VAGINAL BLEEDING; Start 07/06/18 at 11:30 Acetaminophen/ Hydrocodone Bitart ([place] (5/325)) 1 tab Q4H PRN PO MODERATE PAIN LEVEL 4-6; Start 07/06/18 at 11:30 Acetaminophen/ Hydrocodone Bitart ([place] (5/325)) 2 tab Q4H PRN PO SEVERE PAIN LEVEL 7-10 Last administered on 07/07/18at 13:53; Admin Dose 2 TAB; Start 07/06/18 at 11:30 Ibuprofen (Motrin) 800 mg Q8 PRN PO MILD PAIN LEVEL 1-3 Last administered on 07/07/18at 15:59; Admin Dose 800 MG; Start 07/06/18 at 11:30 Simethicone (Mylicon) 160 mg Q8H PRN PO .GAS; Start 07/06/18 at 11:30 Senna/Docusate Sodium (Senokot-S) 1 tab BID PO Last administered on 07/07/18at 13:53; Admin Dose 1 TAB; Start 07/06/18 at 21:00 Lanolin (Lanolin Hpa) 1 applic BEDSIDE MEDICATION PRN TOP .NIPPLES; Start 07/06/18 at 11:30 Diphtheria/ Tetanus/Acell Pertussis (Adacel) 0.5 ml ONCE ONCE IM* ; Start 07/09/18 at 09:00; Stop 07/09/18 at 09:01 Measles/Mumps/ Rubella Vaccine Live (Mmr Ii Vaccine) 0.5 ml ONCE ONCE SC* ; Start 07/09/18 at 09:00; Stop 07/09/18 at 09:01 Oxytocin/Lactated Ringer's 500 ml @ 0 mls/hr ONCE PRN IV .VAGINAL BLEEDING; Start 07/06/18 at 11:30 Methylergonovine Maleate (Methergine) 0.2 mg ONCE PRN IM .VAGINAL BLEEDING; Start 07/06/18 at 11:30 Carboprost Tromethamine (Hemabate) 250 mcg ONCE PRN IM .VAGINAL BLEEDING; Start 07/06/18 at 11:30 Misoprostol (Cytotec) 1,000 mcg ONCE PRN DC .VAGINAL BLEEDING; Start 07/06/18 at 11:30 IV Flush (NS 3 ml) 3 ml PER PROTOCOL IV ; Start 07/06/18 at 11:30 Calcium Gluconate (Ca Gluc) 1 gm ONCE PRN IV FOR MAGNESIUM TOXICITY; Start at 11:30 Labetalol HCl (Normodyne) 200 mg TID PO ; Start 07/07/18 at 21:00; Status SCOTTY IRELAND MD July 07, 2018 16:36
[2018-07-07] MEDS: LABETALOL 200 MG TAB PO SCH ×2 (16:50→22:13)
[2018-07-07] MEDS ORDERED: LABETALOL 200 MG TAB PO SCH ×2 (21:00)
[2018-07-08] VITALS (8 sets, daily range): BP systolic 144–172; BP diastolic 73–84; PULSE 62–85; RESP 18–22
[2018-07-08] MEDS: HYDROCODONE/APAP (5/325) TAB PO PRN ×2 (03:42→20:55)
[2018-07-08] MEDS: ACCU-CHEK XX SCH ×4 (08:48→20:05)
[2018-07-08] MEDS: SENNA/DOCUSATE NA (8.6MG/50MG) TAB PO SCH ×2 (08:52→21:00)
[2018-07-08] MEDS: LABETALOL 200 MG TAB PO SCH ×3 (08:53→20:54)
[2018-07-08] MEDS: IBUPROFEN 800 MG TAB PO PRN (09:12)
--- NOTE | 2018-07-08 19:39 | PN ---
Date/Time of Note Date/Time of Note DATE: 07/08/18 TIME: 19:37 Assessment/Plan VTE Prophylaxis Risk score (from Nsg)>0 risk: 3 SCD applied (from Ns): No SCD contraindicated: low risk/ambulating Pharmacological prophylaxis: NA/contraindicated Pharm contraindication: low risk/ambulating Lines/Catheters IV Catheter Type (from Nrsg): Saline Lock Assessment/Plan Assessment/Plan POST CSECTION DAY 2 CHRONIC IRON DEFICIENCY ANEMIA CHRONIC HTN HOME TOMORROW CBC TOMORROW COUNSELED INSTRUCTED PRESCRIPTION GIVEN FOR PAIN RETURN TO CLINIC IN 2 WEEKS CALL OFFICE IF THERE IS ANY PROBLEM OR CONCERN CONTINUE WITH VITAMINS OD AND FERROUS SULFATE 325MG PO TID DIET ADVISED Result Diagram: 07/08/18 0705 07/07/18 0712 Results 24hrs Laboratory Tests Test 07/07/18 21:01 07/08/18 06:17 07/08/18 07:05 07/08/18 08:48 Bedside Glucose 114 107 Lab Scanned BLOOD TRANSFUSIO Report N White Blood Count 14.6 H Red Blood Count 2.73 #L Hemoglobin 7.6 #L Hematocrit 22.9 #L Mean Corpuscular 83.9 Volume Mean Corpuscular 27.8 L Hemoglobin Mean Corpuscular 33.2 Hemoglobin Concen t Red Cell 14.7 H Distribution Width Platelet Count 275 # Mean Platelet 9.0 Volume Immature 1.200 H Granulocytes % Neutrophils % 83.3 H Lymphocytes % 10.7 L Monocytes % 4.3 Eosinophils % 0.3 Basophils % 0.2 Nucleated Red 0.0 Blood Cells % Immature 0.170 H Granulocytes # Neutrophils # 12.2 H Lymphocytes # 1.6 Monocytes # 0.6 Eosinophils # 0.1 Basophils # 0.0 Nucleated Red 0.0 Blood Cells # Prothrombin Time 12.7 Prothrombin Time 1.0 Ratio INR International 0.94 Normalized Ratio Activated 34.0 Partial Thrombopl ast Time Test 07/08/18 11:04 07/08/18 15:36 Bedside Glucose 134 120 Subjective 24 Hr Interval Summary Free Text/Dictation POST CSECTION DAY 2 LITTLE BOWEL MOVEMENT GOOD URINE OUTPUT FEELS LESS INCISIONAL PAINS Exam/Review of Systems Exam Vitals Vital Signs Date Temp Pulse Resp B/P (MAP) Pulse Ox O2 O2 Flow FiO2 Time Delivery Rate 07/08/18 98.2 66 18 148/78 99 Room Air 17:00 (101) Intake and Output 07/07/18 07/07/18 07/08/18 1515:00 23:00 07:00 IntakeIntake Total 300 ml OutputOutput Total 650 ml 650 ml BalanceBalance -350 ml -650 ml Exam VITAL SIGNS STABLE: YES AFEBRILE: YES BREAST NOT ENGORGED, NON-TENDER, NO APPRECIABLE MASS: YES LUNGS CLEAR, NO RALES, WHEEZES, RHONCHI: YES SINUS RHYTHM WITHOUT MURMUR: YES ABDOMEN: NON-TENDER FUNDUS: BELOW UMBILICUS BOWEL SOUNDS: PRESENT UTERUS: FIRM INCISION (CLEAN, DRY, AND INTACT): YES LOCHIA: LIGHT DEEP TENDON REFLEXES: 0 EXTREMITIES: NO CALF TENDERNESS EDEMA SCALE: NONE Results Results 24hrs Laboratory Tests Test 07/07/18 21:01 07/08/18 06:17 07/08/18 07:05 07/08/18 08:48 Bedside Glucose 114 107 Lab Scanned BLOOD TRANSFUSIO Report N White Blood Count 14.6 H Red Blood Count 2.73 #L Hemoglobin 7.6 #L Hematocrit 22.9 #L Mean Corpuscular 83.9 Volume Mean Corpuscular 27.8 L Hemoglobin Mean Corpuscular 33.2 Hemoglobin Concen t Red Cell 14.7 H Distribution Width Platelet Count 275 # Mean Platelet 9.0 Volume Immature 1.200 H Granulocytes % Neutrophils % 83.3 H Lymphocytes % 10.7 L Monocytes % 4.3 Eosinophils % 0.3 Basophils % 0.2 Nucleated Red 0.0 Blood Cells % Immature 0.170 H Granulocytes # Neutrophils # 12.2 H Lymphocytes # 1.6 Monocytes # 0.6 Eosinophils # 0.1 Basophils # 0.0 Nucleated Red 0.0 Blood Cells # Prothrombin Time 12.7 Prothrombin Time 1.0 Ratio INR International 0.94 Normalized Ratio Activated 34.0 Partial Thrombopl ast Time Test 07/08/18 11:04 07/08/18 15:36 Bedside Glucose 134 120 Medications Medication Current Medications Diagnostic Test (Pha) (Accu-Chek) 1 ea FBSPP XX Last administered on 07/07/18at 21:02; Admin Dose 1 EA; Start 07/05/18 at 19:35 Acetaminophen (Tylenol Tab) 1,000 mg Q6H PRN PO MILD PAIN(1-3)OR ELEVATED TEMP Last administered on 07/05/18at 23:57; Admin Dose 1,000 MG; Start 07/05/18 at 18:00 Cefazolin Sodium/ Dextrose 50 ml @ 100 mls/hr ONCE IVPB ; Start 07/06/18 at 08:00 Oxytocin/Lactated Ringer's 500 ml @ 125 mls/hr POST IV Last administered on 07/07/18at 03:50; Admin Dose 125 MLS/HR; Start 07/06/18 at 08:00 Oxytocin/Lactated Ringer's 500 ml @ 0 mls/hr ONCE PRN IV .VAGINAL BLEEDING; Start 07/06/18 at 08:00 Miscellaneous Information (* Miscellaneous Pharmacy Order) DURAMORPH: 0.2 MG SPI... GIVEN NEURAXIAL XX ; Start 07/06/18 at 10:00 Methylergonovine Maleate (Methergine) 0.2 mg Q6H PRN PO .VAGINAL BLEEDING; Start 07/06/18 at 11:30 Acetaminophen/ Hydrocodone Bitart ([place] (5/325)) 1 tab Q4H PRN PO MODERATE PAIN LEVEL 4-6 Last administered on 07/08/18at 15:03; Admin Dose 1 TAB; Start at 11:30 Acetaminophen/ Hydrocodone Bitart ([place] (5/325)) 2 tab Q4H PRN PO SEVERE PAIN LEVEL 7-10 Last administered on 07/08/18at 03:42; Admin Dose 2 TAB; Start 07/06/18 at 11:30 Ibuprofen (Motrin) 800 mg Q8 PRN PO MILD PAIN LEVEL 1-3 Last administered on 07/08/18at 09:12; Admin Dose 800 MG; Start 07/06/18 at 11:30 Simethicone (Mylicon) 160 mg Q8H PRN PO .GAS Last administered on 07/08/18at 17:28; Admin Dose 160 MG; Start 07/06/18 at 11:30 Senna/Docusate Sodium (Senokot-S) 1 tab BID PO Last administered on 07/08/18at 08:52; Admin Dose 1 TAB; Start 07/06/18 at 21:00 Lanolin (Lanolin Hpa) 1 applic BEDSIDE MEDICATION PRN TOP .NIPPLES; Start 07/06/18 at 11:30 Diphtheria/ Tetanus/Acell Pertussis (Adacel) 0.5 ml ONCE ONCE IM* ; Start 07/09/18 at 09:00; Stop 07/09/18 at 09:01 Measles/Mumps/ Rubella Vaccine Live (Mmr Ii Vaccine) 0.5 ml ONCE ONCE SC* ; Start 07/09/18 at 09:00; Stop 07/09/18 at 09:01 Oxytocin/Lactated Ringer's 500 ml @ 0 mls/hr ONCE PRN IV .VAGINAL BLEEDING; Start 07/06/18 at 11:30 Methylergonovine Maleate (Methergine) 0.2 mg ONCE PRN IM .VAGINAL BLEEDING; Start 07/06/18 at 11:30 Carboprost Tromethamine (Hemabate) 250 mcg ONCE PRN IM .VAGINAL BLEEDING; Start 07/06/18 at 11:30 Misoprostol (Cytotec) 1,000 mcg ONCE PRN IN .VAGINAL BLEEDING; Start 07/06/18 at 11:30 IV Flush (NS 3 ml) 3 ml PER PROTOCOL IV ; Start 07/06/18 at 11:30 Calcium Gluconate (Ca Gluc) 1 gm ONCE PRN IV FOR MAGNESIUM TOXICITY; Start 07/06/18 at 11:30 Labetalol HCl (Normodyne) 200 mg TID PO Last administered on 07/08/18at 13:37; Admin Dose 200 MG; Start 07/07/18 at 16:40 SCOTTY GUTIERREZ MD July 08, 2018 19:38
[2018-07-08] MEDS ORDERED: BISACODYL 10 MG SUPP PR ONE (20:00)
[2018-07-08] MEDS ORDERED: MAGNESIUM HYDROXIDE 30ML CUP PO ONE (20:00)
[2018-07-09] VITALS (7 sets, daily range): BP systolic 156–201; BP diastolic 58–101; PULSE 56–98; RESP 18–20
[2018-07-09] MEDS: HYDROCODONE/APAP (5/325) TAB PO PRN ×2 (03:42→13:11)
[2018-07-09] MEDS: IBUPROFEN 800 MG TAB PO PRN (04:36)
[2018-07-09] MEDS ORDERED: hydrALAzine 20 MG INJ IV ONE (05:00)
[2018-07-09] MEDS ORDERED: LABETALOL HCL 20MG INJ IV ONE (05:00)
[2018-07-09] MEDS ORDERED: BISACODYL 10 MG SUPP PR ONE (06:00)
[2018-07-09] MEDS ORDERED: MAGNESIUM HYDROXIDE 30ML CUP PO ONE (06:00)
[2018-07-09] MEDS: ACCU-CHEK XX SCH ×2 (07:30→11:00)
[2018-07-09] MEDS ORDERED: DIPHTH/TET/ACEL PERTUSS (ADULT) 0.5 ML VIAL IM* ONE (09:00)
[2018-07-09] MEDS ORDERED: MEASLES,MUMPS,RUBELLA VACCINE INJ SC* ONE (09:00)
[2018-07-09] MEDS: SENNA/DOCUSATE NA (8.6MG/50MG) TAB PO SCH (09:18)
[2018-07-09] MEDS: LABETALOL 200 MG TAB PO SCH ×2 (09:18→13:13)
--- NOTE | 2018-07-09 11:59 | CONS ---
Assessment/Plan Assessment/Plan Hospital Course (Demo Recall) 32 yo F with PMH HTN s/p C section. Assessment/Plan (Daily) 1. Essential HTN - Patient is to continue Labetalol 200mg TID and discussed following up with PCP as outpatient for blood pressure monitoring and management - elevated BP incident was most likely secondary to patients pain. Pain now currently controlled - Continue health diet follow discharge 2. Chronic anemia - continue iron supplementation 3. s/p C section 4. Disposition - Patient is medically cleared for discharge and discussed importance of following up with PCP after discharge. Patient plans to make an appointment as soon Thank you for allowing me to participate in the care of your patient. Please call with any questions Consultation Date/Type/Reason Admit Date/Time July 05, 2018 at 16:44 Date of Consultation: July 09, 2018 Type of Consult Internal medicine Reason for Consultation hypertension management Date/Time of Note DATE: 07/09/18 TIME: 11:42 Hx of Present Illness 32 yo F with PMH HTN s/p C section presented for observation given elevated blood pressure during and concern for preeclampsia. Patient is day 2 s/p C Section. Internal medicine was consulted for evaluation given elevated BP 200 early this am. Patient states she was in pain at time of elevated blood pressure. She states she follows with a PCP and was on Labetalol 200mg TID with good control. Denies any chest pain, shortness of breath, nausea, vomiting, dizziness, urinary issues, constipation, or diarrhea. All 12 systems reviewed and pertinent positives as per HPI. All others n egative. Constitutional: No chills, No febrile Eyes: No discharge ENT: No congestion Respiratory: No cough, No shortness of breath, No sputum, No wheezing Cardiovascular: No chest pain, No lightheadedness, No palpitations Gastrointestinal: No pain, No constipation, No diarrhea, No nausea, No vomiting Genitourinary: no complaints Musculoskeletal: no complaints Skin: No erythema, No laceration, No rash Neurologic: No confusion, No focal-weakness, No syncope Endocrine: no complaints Lymphatic: no complaints Psychological: nl mood/affect Immunologic: no complaints Past Medical History Medical History: hypertension Home Meds Reported Medications Calcium Carbonate (CALCIUM) 600 Mg Tablet, 600 MG PO, TAB 07/05/18 Ferrous Sulfate (Iron) 134 Mg Tablet, 134 MG PO, TAB 07/05/18 Vit No.130/Iron/FA ( Tablet) 1 Each Tablet, 1 EACH PO 07/05/18 Labetalol Hcl (Normodyne) 200 Mg Tablet, 200 MG PO BID, TAB 05/14/18 Discontinued Scripts Ondansetron (Ondansetron Odt) 4 Mg Tab.rapdis, 4 MG PO Q6H PRN for NAUSEA AND/OR VOMITING, #10 TAB Prov:INES DEL RIO PA-C 02/27/18 Ondansetron Hcl* (Zofran* ODT) 8 mg -ODT Tab.disper, 8 MG PO Q6H PRN for NAUSEA AND OR VOMITING, #10 TAB Prov:JANEY GOMEZ NP 03/18/15 Acetaminophen* (Tylophen*) 500 Mg Capsule, 500 MG PO Q6H PRN for PAIN AND OR ELEVATED TEMP, #30 TAB Prov:JANEY GOMEZ NP 03/18/15 Medications Current Medications Diagnostic Test (Pha) (Accu-Chek) 1 ea FBSPP XX Last administered on 07/09/18at 07:30; Admin Dose 1 EA; Start 07/05/18 at 19:35 Acetaminophen (Tylenol Tab) 1,000 mg Q6H PRN PO MILD PAIN(1-3)OR ELEVATED TEMP Last administered on 07/05/18at 23:57; Admin Dose 1,000 MG; Start 07/05/18 at 18:00 Cefazolin Sodium/ Dextrose 50 ml @ 100 mls/hr ONCE IVPB ; Start 07/06/18 at 08:00 Oxytocin/Lactated Ringer's 500 ml @ 125 mls/hr POST IV Last administered on 07/07/18at 03:50; Admin Dose 125 MLS/HR; Start 07/06/18 at 08:00 Oxytocin/Lactated Ringer's 500 ml @ 0 mls/hr ONCE PRN IV .VAGINAL BLEEDING; Start 07/06/18 at 08:00 Miscellaneous Information (* Miscellaneous Pharmacy Order) DURAMORPH: 0.2 MG SPI... GIVEN NEURAXIAL XX ; Start 07/06/18 at 10:00 Methylergonovine Maleate (Methergine) 0.2 mg Q6H PRN PO .VAGINAL BLEEDING; Start 07/06/18 at 11:30 Acetaminophen/ Hydrocodone Bitart ([place]don (5/325)) 1 tab Q4H PRN PO MODERATE PAIN LEVEL 4-6 Last administered on 07/08/18 15:03; Admin Dose 1 TAB; Start 07/06/18 at 11:30 Acetaminophen/ Hydrocodone Bitart (Lyndon (5/325)) 2 tab Q4H PRN PO SEVERE PAIN LEVEL 7-10 Last administered on 07/09/18 03:42; Admin Dose 2 TAB; Start at 11:30 Ibuprofen (Motrin) 800 mg Q8 PRN PO MILD PAIN LEVEL 1-3 Last administered on 07/09/18 04:36; Admin Dose 800 MG; Start 07/06/18 at 11:30 Simethicone (Mylicon) 160 mg Q8H PRN PO .GAS Last administered on 07/08/18 17:28; Admin Dose 160 MG; Start 07/06/18 at 11:30 Senna/Docusate Sodium (Senokot-S) 1 tab BID PO Last administered on 07/09/18 09:18; Admin Dose 1 TAB; Start 07/06/18 at 21:00 Lanolin (Lanolin Hpa) 1 applic BEDSIDE MEDICATION PRN TOP .NIPPLES; Start 07/06/18 at 11:30 Oxytocin/Lactated Ringer's 500 ml @ 0 mls/hr ONCE PRN IV .VAGINAL BLEEDING; Start 07/06/18 at 11:30 Methylergonovine Maleate (Methergine) 0.2 mg ONCE PRN IM .VAGINAL BLEEDING; Start 07/06/18 at 11:30 Carboprost Tromethamine (Hemabate) 250 mcg ONCE PRN IM .VAGINAL BLEEDING; Start 07/06/18 at 11:30 Misoprostol (Cytotec) 1,000 mcg ONCE PRN [place] .VAGINAL BLEEDING; Start 07/06/18 at 11:30 IV Flush (NS 3 ml) 3 ml PER PROTOCOL IV ; Start 07/06/18 at 11:30 Calcium Gluconate (Ca Gluc) 1 gm ONCE PRN IV FOR MAGNESIUM TOXICITY; Start 07/06/18 at 11:30 Labetalol HCl (Normodyne) 200 mg TID PO Last administered on 07/09/18 09:18; Admin Dose 200 MG; Start 07/07/18 at 16:40 Allergies: Coded Allergies: No Known Allergy (Unverified , 07/05/18) Past Surgical History Past Surgical Hx: cholecystectomy Family History Significant Family History: no pertinent family hx Social History Alcohol Use: none Smoking Status: Never smoker Drug Use: none Exam/Review of Systems Exam Vitals Vital Signs Date Temp Pulse Resp B/P (MAP) Pulse Ox O2 O2 Flow FiO2 Time Delivery Rate 07/09/18 98.1 72 19 156/76 Room Air 08:00 (102) 07/08/18 99 17:00 Exam General: Patient is a pleasant female. no acute distress. HEENT: Atraumatic, normocephalic. The pupils are equal, round and reactive. Extraocular motor are intact Neck: Supple with full range of motion. No rigidity or meningismus Chest: Nontender Lungs: Clear breath sounds bilaterally, no wheezing or rhonchi Heart: Normal S1-S2, Regular rhythm and rate. No murmur, S3, or S4 Abdomen: Soft ,mild tenderness incision site, nondistended , bowel sounds are present. No guarding no rebound tenderness , No masses or organomegaly. No costovertebral temporal angle mass Extremities: Normal to inspection, no edema no cyanosis. Neuro: no focal deficits appreciated Skin: no rashes or lesions appreciated Results Result Diagram: 07/08/18201707/07/18 0712 Results 24hrs Laboratory Tests Test 07/08/18 15:36 07/08/18 20:18 07/08/18 22:07 07/09/18 08:47 Bedside Glucose 120 124 103 White Blood Count 17.9 #H Red Blood Count 3.04 L Hemoglobin 8.6 L Hematocrit 25.5 L Mean Corpuscular 83.9 Volume Mean Corpuscular 28.3 L Hemoglobin Mean Corpuscular 33.7 Hemoglobin Concent Red Cell 14.7 H Distribution Width Platelet Count 286 Mean Platelet Volume 8.9 Immature 1.000 H Granulocytes % Neutrophils % 85.9 H Lymphocytes % 8.7 L Monocytes % 3.9 Eosinophils % 0.3 Basophils % 0.2 Nucleated Red Blood 0.0 Cells % Immature 0.170 H Granulocytes # Neutrophils # 15.4 H Lymphocytes # 1.6 Monocytes # 0.7 Eosinophils # 0.1 Basophils # 0.0 Nucleated Red Blood 0.0 Cells # Test 07/09/18 10:57 Bedside Glucose 104 Medications Medication Current Medications Diagnostic Test (Pha) (Accu-Chek) 1 ea FBSPP XX Last administered on 07/09/18 07:30; Admin Dose 1 EA; Start 07/05/18 at 19:35 Acetaminophen (Tylenol Tab) 1,000 mg Q6H PRN PO MILD PAIN(1-3)OR ELEVATED TEMP Last administered on 07/05/18 23:57; Admin Dose 1,000 MG; Start 07/05/18 at 18:00 Cefazolin Sodium/ Dextrose 50 ml @ 100 mls/hr ONCE IVPB ; Start 07/06/18 at 08:00 Oxytocin/Lactated Ringer's 500 ml @ 125 mls/hr POST IV Last administered on 07/07/18 03:50; Admin Dose 125 MLS/HR; Start 07/06/18 at 08:00 Oxytocin/Lactated Ringer's 500 ml @ 0 mls/hr ONCE PRN IV .VAGINAL BLEEDING; Start 07/06/18 at 08:00 Miscellaneous Information (* Miscellaneous Pharmacy Order) DURAMORPH: 0.2 MG SPI... GIVEN NEURAXIAL XX ; Start 07/06/18 at 10:00 Methylergonovine Maleate (Methergine) 0.2 mg Q6H PRN PO .VAGINAL BLEEDING; Start 07/06/18 at 11:30 Acetaminophen/ Hydrocodone Bitart (Lyndon (5/325)) 1 tab Q4H PRN PO MODERATE PAIN LEVEL 4-6 Last administered on 07/08/18 15:03; Admin Dose 1 TAB; Start 07/06/18 at 11:30 Acetaminophen/ Hydrocodone Bitart (Lyndon (5/325)) 2 tab Q4H PRN PO SEVERE PAIN LEVEL 7-10 Last administered on 07/09/18 03:42; Admin Dose 2 TAB; Start 07/06/18 at 11:30 Ibuprofen (Motrin) 800 mg Q8 PRN PO MILD PAIN LEVEL 1-3 Last administered on 07/09/18 04:36; Admin Dose 800 MG; Start 07/06/18 at 11:30 Simethicone (Mylicon) 160 mg Q8H PRN PO .GAS Last administered on 07/08/18 17:28; Admin Dose 160 MG; Start 07/06/18 at 11:30 Senna/Docusate Sodium (Senokot-S) 1 tab BID PO Last administered on 07/09/18at 09:18; Admin Dose 1 TAB; Start 07/06/18 at 21:00 Lanolin (Lanolin Hpa) 1 applic BEDSIDE MEDICATION PRN TOP .NIPPLES; Start 07/06/18 at 11:30 Oxytocin/Lactated Ringer's 500 ml @ 0 mls/hr ONCE PRN IV .VAGINAL BLEEDING; Start 07/06/18 at 11:30 Methylergonovine Maleate (Methergine) 0.2 mg ONCE PRN IM .VAGINAL BLEEDING; Start 07/06/18 at 11:30 Carboprost Tromethamine (Hemabate) 250 mcg ONCE PRN IM .VAGINAL BLEEDING; Start 07/06/18 at 11:30 Misoprostol (Cytotec) 1,000 mcg ONCE PRN [place] .VAGINAL BLEEDING; Start 07/06/18 at 11:30 IV Flush (NS 3 ml) 3 ml PER PROTOCOL IV ; Start 07/06/18 at 11:30 Calcium Gluconate (Ca Gluc) 1 gm ONCE PRN IV FOR MAGNESIUM TOXICITY; Start 07/06/18 at 11:30 Labetalol HCl (Normodyne) 200 mg TID PO Last administered on 07/09/18at 09:18; Admin Dose 200 MG; Start 07/07/18 at 16:40 CARLOS BECERRIL MD July 09, 2018 11:54
== END 2018-07-09 15:45 | disposition home or self-care (01) | DRG 786 ==
LOC: EDSTATUS 16:39 → L-D 07-05 16:44 → PP1 07-06 13:14
PROVIDERS: ADMIT Obstetrics & Gynecology; ATTEND Obstetrics & Gynecology
PROC: 10D00Z1 Extraction of Products of Conception, Low, Open Approach (ICD-10-PCS; principal; 2018-07-06 10:00)
DX: O65.5 Obstructed labor due to abnormality of maternal pelvic organs (principal); O60.13X0 Preterm labor second trimester with preterm delivery third trimester, not applicable or unspecified; O34.211 Maternal care for low transverse scar from previous cesarean delivery; O11.4 Pre-existing hypertension with pre-eclampsia, complicating childbirth; O99.89 Other specified diseases and conditions complicating pregnancy, childbirth and the puerperium; N73.6 Female pelvic peritoneal adhesions (postinfective); Z3A.36 36 weeks gestation of pregnancy; Z37.0 Single live birth
CPT/HCPCS: 36430; 80048; 80053; 81001; 82040; 82962; 83615; 83735; 84100; 84560; 85025; 85384; 85610; 85730; 86850; 86900; 86901; 86920; 99464; J0360; J0690; J1100; J1885; J2250; J2270; J2274; J2405; J2590; J2765; J3475; J7120; P9016; P9059

== ENCOUNTER 2018-07-14 22:29 | Emergency (ER) | payer OTHER ==
[~2018-07-14] VITALS: Ht 154.9 cm; Wt 79.7 kg
[~2018-07-14 22:29] MED LIST changes: -ACET500C5 PO; +FERR134T PO; -ONDA4TAB14 PO; +PREN1TAB71 PO; -ZOF8 PO
[2018-07-14 22:34] VITALS: Ht 154.9 cm; Wt 79.7 kg
--- NOTE | 2018-07-14 23:00 | ERD ---
ER Documentation Chief Complaint Chief Complaint 07/06/18; HTN TODAY HPI The patient is a 32-year-old female, presenting to the ER because of elevated blood pressure. She has hypertension before she became and had preeclampsia during . She was discharged with labetalol 200 mg 3 times daily on July 09, 2018. She has been taking her medication. However today when she saw her physician, her blood pressure was high; her doctor then discontinue labetalol and started her on lisinopril 10 mg p.o. She took lisinopril 10 mg and [place] at 6:30 PM today, her blood pressure was still high, therefore she came to the emergency department. She complains of mild frontal headache, 06/01, had similar symptoms when her blood pressure was high, denies syncope, near syncope, neck pain, chest pain, dyspnea, abdominal pain, vomiting, dizzy, diarrhea. She does not smoke nor drink She saw her OB physician 2 days ago for postdelivery visit, who was aware of her persistent vaginal spotting. She required blood transfusion during last hospitalization Past medical history: Hypertension, anemia Past surgical history: 2 , cholecystectomy ROS All systems reviewed and are negative except as per history of present illness. Medications Home Meds Active Scripts Sulfamethoxazole/Trimethoprim* (Bactrim Ds* Tablet) 1 Each Tablet, 1 TAB PO BID for 7 Days, TAB Prov:NBA TURK MD 07/15/18 Reported Medications Hydrocodone Bit-Acetaminophen (Hydrocodone Bit-APAP) 5-325MG Tablet, 1 TAB PO DAILY 07/15/18 Ibuprofen* (Ibuprofen*) 800 Mg Tablet, 800 MG PO Q6H PRN for PAIN LEVEL 6-10 07/15/18 Lisinopril* (Lisinopril*) 10 Mg Tablet, 10 MG PO DAILY for 30 Days 07/15/18 Ferrous Sulfate (Iron) 134 Mg Tablet, 134 MG PO, TAB 07/05/18 Labetalol Hcl (Normodyne) 200 Mg Tablet, 200 MG PO BID, TAB 05/14/18 Discontinued Reported Medications Vit No.130/Iron/FA ( Tablet) 1 Each Tablet, 1 EACH PO 07/05/18 Calcium Carbonate (CALCIUM) 600 Mg Tablet, 600 MG PO, TAB 07/05/18 Allergies Allergies: Coded Allergies: No Known Allergy (Unverified , 07/15/18) PMhx/Soc History of Surgery: Yes () Anesthesia Reaction: No Hx Neurological Disorder: No Hx Respiratory Disorders: No Hx Cardiac Disorders: Yes (eclamspia during , htn) Hx Psychiatric Problems: No Hx Miscellaneous Medical Probl: No Hx Alcohol Use: No Hx Substance Use: No Hx Tobacco Use: No Physical Exam Vitals Vital Signs Date Temp Pulse Resp B/P (MAP) Pulse Ox O2 O2 Flow FiO2 Time Delivery Rate 07/15/18 75 17 135/85 100 Room Air 04:06 (102) 07/15/18 79 18 133/81 100 Room Air 03:00 (98) 07/15/18 80 18 151/93 100 Room Air 02:33 (112) 07/15/18 79 152/90 02:17 (110) 07/15/18 74 18 162/93 100 Room Air 02:13 (116) 07/15/18 75 18 165/97 98 Room Air 02:10 (119) 07/15/18 69 18 200/105 100 Room Air 01:30 (136) 07/15/18 58 18 195/99 100 Room Air 01:00 (131) 07/15/18 64 18 201/101 100 Room Air 00:24 (134) 07/14/18 98.3 88 20 241/111 100 22:34 (154) Physical Exam Const: No acute distress. Head: Atraumatic. Eyes: Normal Conjunctiva. ENT: Normal External Ears, Nose and Mouth. Neck: Full range of motion. No meningismus. Resp: Clear to auscultation bilaterally. Cardio: Regular rate and rhythm. Abd: Soft, non distended, normal bowel sounds, non tender. Skin: No petechiae or rashes. Back: No midline or flank tenderness. Ext: No cyanosis, or edema. Neur: Awake and alert. No focal deficit Psych: Normal Mood and Affect. Result Diagram: 07/14/18 2300 07/14/18 230 Results 24 hrs Laboratory Tests Test 07/14/18 23:00 07/14/18 23:11 White Blood Count 12.5 10^3/ul Red Blood Count 3.04 10^6/ul Hemoglobin 8.4 g/dl Hematocrit 26.0 % Mean Corpuscular Volume 85.5 fl Mean Corpuscular Hemoglobin 27.6 pg Mean Corpuscular Hemoglobin Concent 32.3 g/dl Red Cell Distribution Width 15.1 % Platelet Count 487 10^3/UL Mean Platelet Volume 9.3 fl Immature Granulocytes % 1.100 % Neutrophils % 73.7 % Lymphocytes % 17.6 % Monocytes % 4.6 % Eosinophils % 2.7 % Basophils % 0.3 % Nucleated Red Blood Cells % 0.0 /100WBC Immature Granulocytes # 0.140 10^3/ul Neutrophils # 9.2 10^3/ul Lymphocytes # 2.2 10^3/ul Monocytes # 0.6 10^3/ul Eosinophils # 0.3 10^3/ul Basophils # 0.0 10^3/ul Nucleated Red Blood Cells # 0.0 10^3/ul Prothrombin Time 13.1 Sec Prothrombin Time Ratio 1.0 INR International Normalized Ratio 0.98 Activated Partial Thromboplast Time 37.3 Sec Sodium Level 141 mmol/L Potassium Level 3.5 mmol/L Chloride Level 110 mmol/L Carbon Dioxide Level 24 mmol/L Anion Gap 7 Blood Urea Nitrogen 12 mg/dl Creatinine 0.67 mg/dl Est Glomerular Filtrat Rate mL/min > 60 mL/min Glucose Level 105 mg/dl Calcium Level 8.7 mg/dl Total Bilirubin 0.4 mg/dl Direct Bilirubin 0.00 mg/dl Indirect Bilirubin 0.4 mg/dl Aspartate Amino Transf (AST/SGOT) 24 IU/L Alanine Aminotransferase (ALT/SGPT) 16 IU/L Alkaline Phosphatase 82 IU/L Total Protein 6.6 g/dl Albumin 3.2 g/dl Globulin 3.40 g/dl Albumin/Globulin Ratio 0.94 Lipase 136 U/L Urine Color RED Urine Clarity SLIGHTLY CLOUDY Urine pH 7.0 Urine Specific [place] 1.006 Urine Ketones NEGATIVE mg/dL Urine Nitrite NEGATIVE mg/dL Urine Bilirubin NEGATIVE mg/dL Urine Urobilinogen NEGATIVE mg/dL Urine Leukocyte Esterase 3+ Cori/ul Urine Microscopic RBC 22 /HPF Urine Microscopic WBC 151 /HPF Urine Squamous Epithelial Cells FEW /HPF Urine Amorphous Crystals FEW /HPF Urine Bacteria FEW /HPF Urine Hemoglobin 3+ mg/dL Urine Glucose NEGATIVE mg/dL Urine Total Protein 1+ mg/dl Current Medications Medications Dose Sig/Peterson Start Time Status Last (Trade) Ordered Route PRN Stop Time Admin Dose Reason Admin Nifedipine 30 mg ONCE ONCE 07/14/18 DC 07/14/18 (Procardia PO 23:30 23:36 Xl) 07/14/18 23:31 Labetalol 20 mg ONCE ONCE 07/14/18 DC 07/14/18 HCl IV 23:30 23:33 (Labetalol) 07/14/18 23:31 Labetalol 20 mg ONCE ONCE 07/15/18 DC 07/15/18 HCl IV 00:25 00:40 (Labetalol) 07/15/18 00:26 Labetalol 20 mg ONCE ONCE 07/15/18 DC 07/15/18 HCl IV 01:00 01:18 (Labetalol) 07/15/18 01:01 Labetalol 20 mg ONCE ONCE 07/15/18 DC HCl IV 01:30 (Labetalol) 07/15/18 01:52 Nicardipine 200 ml @ TITRATE IV 07/15/18 DC 07/15/18 HCl 50 mls/hr 02:00 02:02 07/15/18 04:21 Ceftriaxone 50 ml @ ONCE ONCE 07/15/18 DC 07/15/18 Sodium 100 mls/hr IVPB 03:00 03:29 07/15/18 03:29 Procedures/MDM MEDICAL MAKING DECISION: The patient is a 32-year-old female, presenting with acute hypertensive urgency, acute cystitis. She was treated with Procardia XL 30 mg, labetalol 20 mg IV x3 approximately 20 minutes apart with minimal response. Her blood pressures remain elevatedshe was therefore treated with Cardene drip. Her blood pressure responded well to Cardene drip and she was on it for a couple hours and we were able to wean her off the Cardene drip. She was treated with Rocephin 1 g IV for acute cystitis and her blood pressure much improved and is stable for outpatient follow-up The differential diagnoses considered include but are not limited to medical noncompliance, dietary noncompliance, pain induced hypertension Departure Diagnosis: Primary Impression: Hypertensive urgency Additional Impressions: UTI (urinary tract infection) Anemia Condition: Good Comments I discussed the patient with his IPA hospitalist Dr. Mario, who agreed to discharge the patient She was discharged with Keflex I discussed the findings with the patient. I advised the patient to follow-up with the primary physician in about 1-2 days, sooner if needed and return if any concern. Disclaimer: Inadvertent spelling and grammatical errors are likely due to EHR/dictation software use and do not reflect on the overall quality of patient care. Also, please note that the electronic time recorded on this note does not necessarily reflect the actual time of the patient encounter. NBA TURK MD July 14, 2018 23:00
[2018-07-14] MEDS ORDERED: NIFEdipine (XL) 30 MG TAB PO ONE (23:30)
[2018-07-14] MEDS ORDERED: LABETALOL HCL 20MG INJ IV ONE (23:30)
[2018-07-15] MEDS ORDERED: LABETALOL HCL 20MG INJ IV ONE ×3 (00:25→01:30)
[2018-07-15] MEDS ORDERED: niCARdipine-NS 0.1MG/ML DRIP 200 ML IV SCH (02:00)
[2018-07-15] MEDS ORDERED: LISI10TA2 PO (02:08)
[2018-07-15] MEDS ORDERED: HYDR-3601 PO (02:08)
[2018-07-15] MEDS ORDERED: IBUP-1544 PO (02:08)
[2018-07-15] MEDS ORDERED: CEFTRIAXONE 1 GM/50 ML (PMX) 50 ML IVPB ONE (03:00)
[2018-07-15 04:06] VITALS: BP 135/85; PULSE 75; RESP 17
[2018-07-15] MEDS ORDERED: SULF1TAB31 PO (04:17)
== END 2018-07-15 04:20 | disposition home or self-care (01) ==
LOC: E/R 22:29
DX: I16.0 Hypertensive urgency (principal); N39.0 Urinary tract infection, site not specified; D64.9 Anemia, unspecified; I10 Essential (primary) hypertension
CPT/HCPCS: 80053; 81001; 83690; 85025; 85610; 85730; 87086; J0696; Z7610; 36415; 96365; 96375; 96376